=== PATIENT | female | born 1970 ===

== ENCOUNTER 2018-06-26 08:18 | Emergency (ER) | payer MEDICAID ==
[2018-06-26] MEDS ORDERED: Sodium Chloride 0.9% 1,000 ML IV STA (09:03)
[2018-06-26] MEDS ORDERED: Sodium Chloride 0.9% 250 ML IV ONE (09:13)
--- NOTE | 2018-06-26 09:42 | C.PDOC ---
History Of Present Illness 48 y/o female,w/PMhx of fibroids, presents to the ER complaining of intermittent abdominal pain which began in the morning today. Patient states that the pain radiates to the back. Patient reports that she took Advil for the pain. She notes that the pain is similar to the pain she had with her history of fibroids about 1 year ago. She states that her last bm was today. She states that she had "2 periods" in May 2018 and her LMP was on 05/30/18.Denies having fever,chills, vomiting, diarrhea,dysuria, hematuria, vaginal bleeding, and vaginal discharge. Chief Complaint (Nursing): Abdominal Pain History Per: Patient History/Exam Limitations: no limitations Onset/Duration Of Symptoms: Hrs Current Symptoms Are (Timing): Still Present Severity: Moderate Radiation Of Pain To:: Back Associated Symptoms: Nausea. denies: Fever, Chills, Vomiting, Diarrhea, Urinary Symptoms Past Medical History Reviewed: Historical Data, Nursing Documentation, Vital Signs Vital Signs: Last Vital Signs Temp 98.5 F 06/26/18 08:26 Pulse 75 06/26/18 08:26 Resp 16 06/26/18 08:26 BP 109/68 06/26/18 08:26 Pulse Ox 100 06/26/18 08:26 - Medical History PMH: Asthma Other Surgeries: Hx of surgeries Family History: States: No Known Family Hx - Social History Hx Alcohol Use: No Hx Substance Use: No Review Of Systems Except As Marked, All Systems Reviewed And Found Negative. Constitutional: Negative for: Fever, Chills Gastrointestinal: Positive for: Nausea, Abdominal Pain. Negative for: Vomiting, Diarrhea Genitourinary: Negative for: Dysuria, Hematuria, Vaginal Discharge, Vaginal Bleeding Physical Exam - Physical Exam Appears: Non-toxic, No Acute Distress Skin: Normal Color, Warm, Dry Head: Atraumatic, Normacephalic Eye(s): bilateral: Normal Inspection Nose: Normal Oral Mucosa: Moist Neck: Supple Chest: Symmetrical Cardiovascular: Rhythm Regular Respiratory: Normal Breath Sounds, No Rales, No Rhonchi, No Wheezing Gastrointestinal/Abdominal: Bowel Sounds (positive bowel sounds), Soft, Tenderness (diffuse abdominal tenderness ( greater in bilateral lower abdomen)), No Guarding, No Rebound Back: Normal Inspection, No CVA Tenderness Neurological/Psych: Oriented x3, Normal Speech ED Course And Treatment - Laboratory Results Result Diagrams: 06/26/18 09:46 06/26/18 09:46 O2 Sat by Pulse Oximetry: 100 (RA) Pulse Ox Interpretation: Normal Medical Decision Making Medical Decision Making: Plan: --Labs --UA --Toradol IV --Zofran IV --IV Fluids 1120: Re-eval: Discussed labs with patient. Patient states that she feels better. US ordered for patient. Patient will follow up with [facility]. Disposition Counseled Patient/Family Regarding: Studies Performed, Diagnosis, Need For Followup - Disposition [facility] Disposition: HOME/ ROUTINE Disposition Time: 14:31 Condition: IMPROVED Additional Instructions: ZAHEER DRIVER, thank you for letting us take care of you today. Your provider was Melinda Solis MD and you were treated for STOMACH PAIN. The emergency medical care you received today was directed at your acute symptoms. If you were prescribed any medication, please fill it and take as directed. It may take se veral days for your symptoms to resolve. Return to the Emergency Department if your symptoms worsen, do not improve, or if you have any other problems. Please contact your doctor or call one of the physicians/clinics you have been referred to that are listed on the Patient Visit Information form that is included in your discharge packet. Bring any paperwork you were given at discharge with you along with any medications you are taking to your follow up visit. Our treatment cannot replace ongoing medical care by a primary care provider outside of the emergency department. Thank you for allowing the [facility] team to be part of your care today. If you had an X-Ray or CT scan: A Radiologist will review the ED reading if any change in treatment is needed we will contact you. If you had a blood, urine, or wound culture: It will take several days for the results, if any change in treatment is needed we will contact you. If you had an STI test: It will take 48 hours for the results. Please call after 1 week if you have not heard back. Prescriptions: Ketorolac Tromethamine [Toradol] 10 mg PO QID PRN #20 tab PRN Reason: Pain, Moderate (4-7) Instructions: Ovarian Cyst (DC) Forms: Accompanied To ED By:, Flexion (Icelandic) Print Language: CYMRAES - POA Present On Arrival: None - Clinical Impression Clinical Impression: Hemorrhagic ovarian cyst, Ovarian cyst - Scribe Statement The provider has reviewed the documentation as recorded by the Scribe Regino Ivroy Provider Attestation: All medical record entries made by the Scribe were at my direction and personally dictated by me. I have reviewed the chart and agree that the record accurately reflects my personal performance of the history, physical exam, me dical decision making, and the department course for this patient. I have also personally directed, reviewed, and agree with the discharge instructions and disposition.
[2018-06-26 10:04] LABS: BASO % 0.6 % (0.0-2.0); EOS # 0.1 K/uL (0.0-0.7); EOS % 0.8 % (0.0-4.0); HEMOGLOBIN 11.5 g/dL (11.0-16.0); LYMPH # 1.4 K/uL (1.0-4.3); LYMPH % 17.7 % (20.0-40.0); MEAN CELL VOLUME 94.4 fL (81.0-99.0); MEAN CORPUSCULAR HEMOGLOBIN 32.1 pg (27.0-31.0); MEAN PLATELET VOLUME 8.6 fL (7.2-11.7); MONO # 0.5 K/uL (0.0-0.8); MONO % 5.9 % (0.0-10.0); NEUT # 5.8 K/uL (1.8-7.0); RBC 3.59 Mil/uL (3.80-5.20); RED CELL DISTRIBUTION WIDTH 13.2 % (11.5-14.5); WHITE BLOOD COUNT 7.7 K/uL (4.8-10.8)
[2018-06-26 10:14] LABS: ALB/GLOB RATIO 1.6 (1.0-2.1); ALBUMIN 4.3 g/dL (3.5-5.0); ALT/SGPT 6 U/L (9-52); AST/SGOT 23 U/L (14-36); BLOOD UREA NITROGEN 8 mg/dL (7-17); CALCIUM 9.4 mg/dl (8.6-10.4); GFR NON-AFRICAN AMERICAN > 60; LIPASE 98 U/L (23-300)
[2018-06-26 10:38] LABS: SQUAMOUS EPITHIAL 7 /hpf (0-5); URINE BILIRUBIN NEGATIVE (NEGATIVE); URINE BLOOD NEGATIVE (NEGATIVE); URINE CLARITY Clear (Clear); URINE COLOR Yellow (YELLOW); URINE GLUCOSE (UA) NORMAL (Normal); URINE LEUKOCYTE ESTERASE NEG Leu/uL (Negative); URINE PROTEIN NEGATIVE (NEGATIVE); URINE UROBILINOGEN NORMAL mg/dL (0.2-1.0)
[2018-06-26 12:58] VITALS: RESP 18
--- NOTE | 2018-06-26 14:00 | US ---
Date of service: 06/26/2018 HISTORY: Pelvic pain COMPARISON: None available. TECHNIQUE: Transabdominal and transvaginal pelvic filter a sound was performed. FINDINGS: UTERUS: Measures 9.6 x 4.1 x 5.1 cm. Anteverted, normal in size and appearance. No fibroid or other mass lesion seen. ENDOMETRIUM: Measures 9.0 mm in diameter. Unremarkable. CERVIX: No cervical abnormality identified. RIGHT OVARY: Measures 4.8 x 2.6 x 3.8 cm. No solid mass. Normal flow. There is a 2.1 x 1.7 x 2.1 cm complicated/hemorrhagic cyst. LEFT OVARY: Measures 4.3 x 2.9 x 4.0 cm. No solid mass. Normal flow. There is a 2.5 x 1.8 x 2.3 cm simple cyst and 2.0 x 1.7 x 2.4 cm septated cyst. FREE FLUID: There is small amount of complicated/hemorrhagic fluid in the right adnexa and cul de sac. OTHER FINDINGS: None. IMPRESSION: 1. 2.1 x 1.7 x 2.1 cm complicated/hemorrhagic cyst in the right ovary and small amount of complicated/hemorrhagic fluid in the right adnexa and cul-de-sac which is likely related to partial rupture of the complicated/hemorrhagic cyst. 2. 2.5 cm simple cyst and 2.4 cm septated cyst in the left ovary.
[2018-06-26 14:38] VITALS: O2SAT 100
[2018-06-26 15:14] VITALS: BP 96/60; PULSE 71; TEMP 97.8
== END 2018-06-26 15:15 | disposition home or self-care (01) ==
LOC: C.ER 08:18
DX: N83.209 Unspecified ovarian cyst, unspecified side (principal)
CPT/HCPCS: 76830; 76856; 80053; 81001; 81025; 83690; 84702; 85025; 87086; 96361; 96374; 96375; 99285; J1885; J2405; J7030